=== PATIENT | female | born 1980 | race Native Hawaiian/Other Pacific Islander ===

== ENCOUNTER 2017-07-17 10:06 | Outpatient (CLI) | payer OTHER | END 2017-07-17 19:06 | disposition home or self-care (01) | LOC: RAD 10:06 | DX: J20.8 Acute bronchitis due to other specified organisms (principal) ==

== ENCOUNTER → 2017-08-01 15:22 | Outpatient (CLI) | payer OTHER | END | disposition home or self-care (01) | LOC: RESP 15:22 | DX: G56.03 Carpal tunnel syndrome, bilateral upper limbs (principal); G56.23 Lesion of ulnar nerve, bilateral upper limbs | CPT/HCPCS: 95885; 95911 ==

== ENCOUNTER 2020-06-08 11:02 | Outpatient (CLI) | payer OTHER | END 2020-06-08 22:27 | disposition home or self-care (01) | LOC: US 11:02 | PROVIDERS: ATTEND Nurse Practitioner Family | DX: N91.1 Secondary amenorrhea (principal) ==

== ENCOUNTER 2020-06-09 20:36 | Emergency (ER) | payer OTHER ==
[~2020-06-09] VITALS: Ht 160 cm; Wt 78.0 kg
[2020-06-09 22:10] VITALS: BP 120/78; TEMP 98.9
== END 2020-06-09 22:10 | disposition home or self-care (01) ==
LOC: ED 20:36
DX: J32.8 Other chronic sinusitis (principal); M62.830 Muscle spasm of back
CPT/HCPCS: 99282

== ENCOUNTER 2021-10-24 11:53 | Outpatient (CLI) | payer BC | END 2021-10-24 19:55 | disposition home or self-care (01) | LOC: MRI 11:53 | PROVIDERS: ATTEND Nurse Practitioner Family | DX: M47.812 Spondylosis without myelopathy or radiculopathy, cervical region (principal) ==

== ENCOUNTER 2022-01-27 11:38 | Outpatient (CLI) | payer BC, OTHER ==
[~2022-01-27] VITALS: Ht 160 cm; Wt 79.4 kg
[2022-01-27 11:40] VITALS: BP 104/65; TEMP 98.4
--- NOTE | 2022-01-27 12:08 | NUR ---
1140 PT AMBULATED TO ROOM 1126 FOR OP INFUSION. VS OBTAINED. 22G PIV TO RAC X1 ATTEMPT. FLUSHED WITH 10ML NS SECURED WITH TEGADERM. PT TOLERATED WELL WITH NO COMPLAINTS.
--- NOTE | 2022-01-27 12:14 | NUR ---
BEBTELOVIMAB IVP OVER 30 SECONDS FOLLOWED BY 10 ML NS FLUSH AT THIS TIME WITH NO COMPLICATIONS. WILL MONITOR VS PER ORDER
--- NOTE | 2022-01-27 12:20 | NUR ---
PT SITTING IN RECLINER TALKING ON CELL PHONE PT STATES SHE FEELS FINE. NO ADVERSE REACTION SUSPECTED AT THIS TIME.
[2022-01-27 12:30] VITALS: BP 111/65; TEMP 98.1
[2022-01-27 12:45] VITALS: BP 103/61; TEMP 97.8
[2022-01-27 13:15] VITALS: BP 105/67; TEMP 98.3
--- NOTE | 2022-01-27 13:20 | NUR ---
1315 PT TOLERATED INFUSION WITH NO ADVERSE REACTIONS SUSPECTED. IV DC INTACT SITE CARE PROVIDED. PT AMBULATED OUT OF FACILITY TO POV IN NO DISTRESS
== END 2022-01-27 23:40 | disposition home or self-care (01) ==
LOC: INF 11:38
PROVIDERS: ATTEND Family Medicine
DX: Z23 Encounter for immunization (principal); U07.1 COVID-19
CPT/HCPCS: 96374; Q0222

== ENCOUNTER 2022-03-22 07:45 | Outpatient (CLI) | payer BC, OTHER | END 2022-03-22 18:47 | disposition home or self-care (01) | LOC: MAMMO 07:45 | PROVIDERS: ATTEND Nurse Practitioner Family | DX: Z12.31 Encounter for screening mammogram for malignant neoplasm of breast (principal) ==

== ENCOUNTER 2022-05-25 12:28 | Outpatient (CLI) | payer BC, OTHER | END 2022-05-25 18:59 | disposition home or self-care (01) | LOC: MRI 12:28 | PROVIDERS: ATTEND Neurological Surgery | DX: M47.22 Other spondylosis with radiculopathy, cervical region (principal) | CPT/HCPCS: A9576 ==